=== PATIENT | female | born 1990 | race Caucasian/White ===

== ENCOUNTER → 2017-11-23 09:11 | Outpatient (CLI) | payer BC, SELFPAY ==
--- NOTE | 2017-11-23 09:25 | RAD_ITS ---
STUDY: X-RAY - LUMBOSACRAL SPINE REASON FOR EXAM: Female, 27 years old. Back pain TECHNIQUE: 6 view(s) of the lumbosacral spine were obtained including flexion and extension.. COMPARISON: None FINDINGS: There is an exaggerated lumbar lordosis. There is no substantial scoliosis. There is normal alignment of the vertebrae. No change in alignment on flexion and extension. Normal vertebral bodies and endplates. Normal disc space heights. Normal bilateral sacral ala, sacroiliac joints, and visualized sacrum. Status post cholecystectomy. RAD/L/S Spine Comp/w Bending Views IMPRESSION: Exaggerated lumbar lordosis with otherwise normal alignment. No changes in vertebral body alignment on flexion and extension. Negative for fracture, osteolytic or blastic bone lesion. Negative for substantial degenerative or arthritic changes. Electronically Signed: Lydia Hernandez MD at 21:08 EST , Service support ,
== END ==
PROVIDERS: Visit Provider Orthopaedic Surgery
DX: M54.5 Low back pain (principal)
CPT/HCPCS: 72114

== ENCOUNTER → 2017-12-02 09:27 | Outpatient (CLI) | payer BC, SELFPAY ==
[2017-12-02 10:33] LABS: Amphetamine Urine VISTA NEGATIVE (<1000 ng/mL); Barbiturate Urine VISTA NEGATIVE (< 200 ng/mL); Benzodiazepine Urine VISTA NEGATIVE (< 200 ng/mL); Cocaine Urine VISTA NEGATIVE (< 300 ng/mL); Ecstacy Urine VISTA NEGATIVE (< 500 ng/mL); Methadone Urine VISTA NEGATIVE (< 300 ng/mL); PCP Urine VISTA NEGATIVE (< 25 ng/mL); THC Urine VISTA NEGATIVE (< 50 ng/mL); Vista UDS pH Range 7
== END ==
PROVIDERS: Visit Provider Anesthesiology
DX: F11.20 Opioid dependence, uncomplicated (principal)
CPT/HCPCS: 80307

== ENCOUNTER 2018-05-26 11:54 | Emergency (ER) | payer SELFPAY ==
[2018-05-26 11:55] VITALS: BP 151/84; PULSE 90; RESP 16; TEMP 36.4; O2SAT 100; BMI 34.3
--- NOTE | 2018-05-26 12:14 | ED.VISSUMM ---
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 Cedeño orthopedic surgeon but her insurance is requiring her to wait until June she is on nonsteroidals currently she has no other complaints Physical Examination: [] On exam head neck chest abdomen unremarkable the right upper extremity has full range of motion to the hand and the wrist is a strong radial pulse cap refill sensation is normal she has full flexion-extension of all major joints thumb function is normal she complains of paresthesias to the ring and index finger but these fingers are well-perfused sensation appears to be intact and seems like much of this is at least exacerbated by her work duties Test Results: [] Emergency Department Course and Treatment: [] I explained the patient this time given his lack of trauma this is a long-standing problem this certainly could be related to a neurovascular muscular process I recommend she see Dr. Cedeño , she will try to go with that process again she has referral to Dr. Cedeño as she seen them before, she indicates she is currently on nonsteroidals I explained her that I could not prescribe anything other than nonsteroidals, and her pain must be managed by her primary care provider is not the emergency department, based on state rules, we will provide her with a Velcro wrist splint asked her to limit her work duties rest ice elevate and return for change in symptoms and she will do so Treatment Plan: [] Disposition: [] Home stable Impression: [] Paresthesias is involving the right hand This note was generated with [employer] dictation software. It may contain incorrect words, spelling, and punctuation that were not noted in review of the chart prior to signing ED Disposition - Plan for ED Patient: Chief Complaint: Upper Extremity Injury Referrals: NOT,DEFINED [Primary Care Provider] -
--- NOTE | 2018-05-26 12:17 | ED.DCSUM_ITS ---
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 Cedeño orthopedic surgeon but her insurance is requiring her to wait until June she is on nonsteroidals currently she has no other complaints Physical Examination: [] On exam head neck chest abdomen unremarkable the right upper extremity has full range of motion to the hand and the wrist is a strong radial pulse cap refill sensation is normal she has full flexion-extension of all major joints thumb function is normal she complains of paresthesias to the ring and index finger but these fingers are well-perfused sensation appears to be intact and seems like much of this is at least exacerbated by her work duties Test Results: [] Emergency Department Course and Treatment: [] I explained the patient this time given his lack of trauma this is a long-standing problem this certainly could be related to a neurovascular muscular process I recommend she see Dr. Cedeño , she will try to go with that process again she has referral to Dr. Cedeño as she seen them before, she indicates she is currently on nonsteroidals I explained her that I could not prescribe anything other than nonsteroidals, and her pain must be managed by her primary care provider is not the emergency department, based on state rules, we will provide her with a Velcro wrist splint asked her to limit her work duties rest ice elevate and return for change in symptoms and she will do so Treatment Plan: [] Disposition: [] Home stable Impression: [] Paresthesias is involving the right hand This note was generated with [employer] dictation software. It may contain incorrect words, spelling, and punctuation that were not noted in review of the chart prior to signing ED Disposition - Plan for ED Patient: Chief Complaint: Upper Extremity Injury Referrals: NOT,DEFINED [Primary Care Provider] -
--- NOTE | 2018-05-26 12:17 | ED.DEP ---
ED Disposition - Plan for ED Patient: Chief Complaint: Upper Extremity Injury Instructions: ED Carpal Tunnel Referrals: NOT,DEFINED [Primary Care Provider] - Additional Instructions: Please wear the wrist splint, ice elevation and follow-up with Dr. Cedeño as soon as you can, limit your gripping work during her work duties
== END 2018-05-26 12:36 | disposition home or self-care (01) ==
PROVIDERS: Emergency Provider Emergency Medicine
DX: R20.2 Paresthesia of skin (principal); G56.01 Carpal tunnel syndrome, right upper limb; Z79.84 Long term (current) use of oral hypoglycemic drugs; Z79.899 Other long term (current) drug therapy
CPT/HCPCS: 99283

== ENCOUNTER → 2018-07-10 09:26 | Outpatient (CLI) | payer OTHER, SELFPAY ==
--- NOTE | 2018-07-10 09:31 | RAD_ITS ---
STUDY: X-RAY - RIGHT HAND REASON FOR EXAM: Unable to straighten fingers for 6 months, no specific injury. TECHNIQUE: 3 view(s) of the hand. COMPARISON: None. FINDINGS: Normal radiocarpal articulation. Normal distal radioulnar joint. Normal visualized carpal bones. Normal carpal articulations Normal carpometacarpal articulation of the thumb. Normal second through fifth carpometacarpal joints. Normal metacarpi. Normal metacarpophalangeal joint of the thumb. Normal interphalangeal joint of the thumb. Normal proximal and distal phalanges of the thumb. Normal metacarpophalangeal joints of the second through fifth fingers. There is flexion deformity of the second and third digits at the proximal interphalangeal joints. Normal phalanges of the second through fifth fingers. The soft tissue structures are unremarkable. RAD/Hand Min 3 Views IMPRESSION: Flexion deformity of the second and third digits at the proximal interphalangeal joints. Otherwise, unremarkable x-ray examination of the right hand. Electronically Signed: Addy Rivera MD at 13:28 EDT Tel , Service support ,
== END ==
PROVIDERS: Referring Provider Orthopaedic Surgery; Visit Provider Orthopaedic Surgery
DX: M79.641 Pain in right hand (principal)
CPT/HCPCS: 73130

== ENCOUNTER 2018-08-04 11:01 | Emergency (ER) | payer OTHER, SELFPAY ==
[2018-08-04 11:01] VITALS: BP 156/94; PULSE 96; RESP 16; TEMP 36.4; O2SAT 98; BMI 34.8
--- NOTE | 2018-08-04 11:55 | ED.VISSUMM ---
- ER Visit Summary Date of Service: 08/04/18 Chief Complaint: [] Pain in the right hand index long finger for months seen by [facility] 2 days ago History of Present Illness: The patient is a 28 F [] she has a long history of intermittent cramps and pain involving the right index and long finger to where she indicates the fingers seem to constrict in flexion the etiology of this is unclear this is been going on for many many months she has been evaluated by her primary care physicians other physicians, she was recently seen by [facility] on this she has had studies done etc. the exact etiology of the above is unclear she indicates she was told that was when she is an MRI for further evaluation of the above and that is being scheduled. She indicates she is taking was told by her outpatient providers to use [id number] medications, she is not been prescribed any prescription medicines by any of her providers in fact she was not given anything by the [facility] provider she saw. She presents today saying that the up nonsteroidal medication she is using and Tylenol are not helping and she indicates she contacted [facility] and they told her that if she went to the emergency department she would receive pain management options. This is not different or new in any way, she has no known history of any medical conditions no trauma and again this is a chronic relapsing issue Physical Examination: [] Blood pressure is 150/80 she is in no distress her right hand index finger long finger at the PIP joints are held in slight flexion any type of movement causes pain there is normal cap refill, strong radial pulse, no signs of vascular venous insufficiency, and sensation in the thumb the rest of the fingers unremarkable the hand itself is unremarkable the wrist forearm elbow and the rest of the extremities normal her HEENT heart and lung exam are unremarkable and her neurologic exam is grossly unremarkable Test Results: [] Emergency Department Course and Treatment: [Extensive prior evaluation she has had a prior extensive evaluation and again has just seen [facility] 2 days ago none of her providers have provided her with prescription medications, she is indicating nonsteroidals are not helping I explained we could provide prescription strength nonsteroidals we could not provide narcotic medications and further I explained to her pain management cannot be assumed by the emergency department as per [facility] and multiple other regulators her pain management must be provided by one provider, given the prior extensive evaluation and the fact that she is just been seen by hand service there is been no trauma or nothing that is different or new I explained there is really nothing additionally can be done from the emergency department and she should follow-up with all of her outpatient providers and otherwise follow all their instructions. We will provide her Toradol 60 mg's IM and I will provide her a prescription for Naprosyn 500 twice daily, I discussed splinting devices with her she states she has been given those before and those do not help and she does not wish to have that Treatment Plan: [] Disposition: [] Home stable Impression: [] Acute on chronic recurrent intermittent right hand cramps etiology unclear This note was generated with [employer] dictation software. It may contain incorrect words, spelling, and punctuation that were not noted in review of the chart prior to signing ED Disposition - Plan for ED Patient: Chief Complaint: Upper Extremity Injury Referrals: Shira Humphrey, RN [Primary Care Provider] -
[2018-08-04] MEDS: Ketorolac 60 MG/2 ML Vial IM (11:56)
--- NOTE | 2018-08-04 11:59 | ED.DEP ---
ED Disposition - Plan for ED Patient: Chief Complaint: Upper Extremity Injury Instructions: ED Sprain Finger Prescriptions: Naproxen [Naprosyn] 500 mg PO BID PRN #20 tab Referrals: Shira Humphrey RN [Primary Care Provider] - Additional Instructions: Please follow all of the instructions given to you by your primary care and outpatient providers and hand providers
== END 2018-08-04 12:10 | disposition home or self-care (01) ==
PROVIDERS: Emergency Provider Emergency Medicine
DX: R25.2 Cramp and spasm (principal); M79.641 Pain in right hand
CPT/HCPCS: 96372; 99282

== ENCOUNTER 2018-09-06 10:41 | Outpatient (RCR) | payer SELFPAY ==
--- NOTE | 2018-10-16 11:04 | HP.OTEVAL_ITS ---
Patient's Visit Information ELIANA LOPEZ is a 28 year old F, referred to Occupational Therapy by LISA BURTON, with a diagnosis of Trigger finger releaase of R middle and index fingers. Date of Evaluation: 09/06/18 Occupational Therapist: Malissa Parmar, TRACIER/Yang, CHT - Subjective Subjective: pt. arrives with trigger finger release of 2nd and 3rd fingers, which occured on 08/20/18. pt. started having trigger finger symptoms about 8 months ago. pt. reports that the stitches were removed on the 08/30/18. pt. arrives with resting hand splint and reports that it may need altered slightly for increased comfort. - ADLs Kitchen: Open jars Miscellaneous: Write Comments: pt. reports that pushing objects and lifting heavy objects is challenging - Pain palm of R hand 6 Pain Intensity Range: 0, 1, 2, 3, 4, 5, 6, 7, 8 - Objective Objective/Observation: pt. has extension lag in the 2nd and 3rd digits - ROM ROM Comments: slight pulling from moving fingers during the ROM measurements. 2nd finger. MP: 0/41. PIP: -/. DIP: -5/60. 3rd. MP: 0/51. PIP: -18/80. 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 by completing strengthening exercises and stretches in order to complete BADL?s and IADL?s. Patient will improve lateral and tripod grasps by 5 lbs. by completing strengthening and stretching exercises in order to complete BADL?s and IADL?s. Goal:: Patient will increase ROM in MP joint of L thumb by 10 degrees by completing strengthening and stretching exercises in order to complete BADL?s and IADL?s. Goal:: Patient will report overall decrease in pain of <3 in order to complete BADL?s and IADL?s. Goal:: patient will report completion of and demo understanding of HEP for increased I with BADL's and IADL's. - Rehabilitation General Assessment: pt. presents today after having trigger finger release of R middle and index fingers on 08/20/18. pt. presents today with decreased strength, ROM, increased pain, and decreased ability to complete BADL's and IADL's. D/t high co-pay, pt. would like to keep visits to a minimum. pt. will likely be seen for 1-2 additional follow-up visits to make sure pt. is progressing. Today, OT provided US and educated pt. on HEP and scar tissue management. Rehabilitation Potential: Excellent - Anticipated Interventions Anticipated Interventions: A/AAROM/PROM, Strengthening, Scar Care, Triggerpoint Release, Modalities, Orthoses, Joint Protection/Energy Conservation, ADL Training, Home Program - Visit Plan Frequency: 1x/Week Duration: 1 Week TEXT: Thank you for the opportunity to evaluate your patient. For Medicare and Medicare HMO plans, please review the plan of care and approve it. It will need to be FAXED BACK to us at [phone] for Medicare purposes. Please let me know if there are questions or concerns regarding this plan of care. Physician Signature: Date:
--- NOTE | 2019-01-09 14:37 | HP.OT.NRP ---
HP - Discharge Summary - Patient Information ELIANA LOPEZ was seen in my office for initial evaluation on 09/06/18. The following Plan of Care was established for this patient: Initial Frequency: 1x/Week Initial Duration: 1 Week - Anticipated Interventions Anticipated Interventions: A/AAROM/PROM, Strengthening, Scar Care, Triggerpoint Release, Modalities, Orthoses, Joint Protection/Energy Conservation, ADL Training, Home Program This patient was last seen in our office 09/06/18. Pertinent comments regarding their Occupational therapy will appear below: pt was seen for initial OT eval only. pt cancelled her apt on 09/10/19 and has not rescheduled. pt d/c due to time-lapse in care. At this point I will be discontinuing this patient from occupational therapy. I would be happy to see this patient again in the future if found appropriate by the physician. Thank you! Malissa Parmar, OTR/L, CHT
== END 2018-09-06 19:00 | disposition home or self-care (01) ==
LOC: OT 10:41
DX: M65.331 Trigger finger, right middle finger (principal); M65.321 Trigger finger, right index finger
CPT/HCPCS: 97166

== ENCOUNTER → 2019-11-08 19:53 | Outpatient (CLI) | payer BC, OTHER, SELFPAY ==
[2019-11-08 20:45] LABS: Amphetamine Urine VISTA NEGATIVE (<1000 ng/mL); Barbiturate Urine VISTA NEGATIVE (< 200 ng/mL); Benzodiazepine Urine VISTA NEGATIVE (< 200 ng/mL); Cocaine Urine VISTA NEGATIVE (< 300 ng/mL); Ecstacy Urine VISTA NEGATIVE (< 500 ng/mL); Methadone Urine VISTA NEGATIVE (< 300 ng/mL); PCP Urine VISTA NEGATIVE (< 25 ng/mL); THC Urine VISTA NEGATIVE (< 50 ng/mL); Vista UDS pH Range 6
== END ==
PROVIDERS: Visit Provider Anesthesiology
DX: F11.20 Opioid dependence, uncomplicated (principal)
CPT/HCPCS: 80307

== ENCOUNTER 2020-12-31 08:48 | Outpatient (RCR) | payer BC, SELFPAY ==
[2020-12-31 09:12] VITALS: BP 126/87; PULSE 122; RESP 20; TEMP 36.8; BMI 34.8
--- NOTE | 2020-12-31 14:39 | HP.PCM_ITS ---
(1) Surgical wound dehiscence Status: Acute Code(s): T81.31XA - Disruption of external operation (surgical) wound, not elsewhere classified, initial encounter (2) Peripheral vascular disease Status: Chronic Code(s): I73.9 - Peripheral vascular disease, unspecified (3) Type 1 diabetes mellitus Status: Chronic Code(s): E10.9 - Type 1 diabetes mellitus without complications (4) Tobacco abuse Status: Chronic Code(s): Z72.0 - Tobacco use (5) Tobacco abuse counseling Status: Acute Code(s): Z71.6 - Tobacco abuse counseling History of Present Illness Date of Service: 12/31/20 Chief Complaint: Non healing surgical wound History of Wound: Ms. Echols is a 30 yo who was referred by her surgeon due to non healing post surgical wound/wound breakdown. She has had a very eventful past couple of weeks. Initially seen by her patch sander for left ingrown toenail however referred to vascular surgeon due to poor healing and concerns for peripheral vascular disease. Was noted to have severe peripheral vascular disease and a bypass was attempted which had several complications/postop swelling for which she was readmitted. Following surgery, incision sites have not healed predominantly the one around her knee and left ankle. Left toe wound also did not heal for which she was seen by her patch sander again a week ago and had a partial amputation. Stitches have remained for weeks due to concern per patient for breakdown. She states that her diabetes has been better controlled with her A1c down from 11.5-7.5. Smokes and has smoked about 3 packs a day s joseline age 14 but states that she now cut back to half a pack to 1 pack a day. She denies chills, fever or otherwise feeling of unwell. Past Medical History Past Medical History: Chronic Problems (This Medical Record has been edited. Action required.) Peripheral vascular disease (Chronic) Type 1 diabetes mellitus (Chronic) Tobacco abuse (Chronic) Allergies/Adverse Reactions: Allergies Sulfa (Sulfonamide Antibiotics) Allergy (Verified 12/31/20 09:52) unknown amoxicillin Allergy (Uncoded 05/02/19 15:22) unknown ceclore Allergy (Uncoded 05/02/19 15:22) unknown Home Medications: Ambulatory Orders Medication Instructions Recorded lisinopril 5 mg tablet 5 mg PO QDAY 11/23/17 metformin 500 mg tablet 850 mg PO BID 11/23/17 simvastatin 5 mg tablet 5 mg PO QPM 11/23/17 Acetaminophen [Tylenol Extra 500 mg PO TID 12/31/20 Strength] Aspirin/Calcium Carbonate [Raphael 81 mg PO 12/31/20 Women's Aspirin Tablet] Dulaglutide [Trulicity] 0.75 mg SQ 12/31/20 Duloxetine HCl 30 mg PO 12/31/20 Ertapenem Sodium [Ertapenem] 1 gm IJ 12/31/20 Gabapentin 300 mg PO TID 12/31/20 Oxycodone HCl/Acetaminophen 12/31/20 [Percocet 5-325] Rivaroxaban [Xarelto] 20 mg PO DAILY 12/31/20 Smoking Status: Current every day smoker Review of Systems Constitutional: Denies: Anorexia, Chills, Fever Eyes: Denies: Blurred vision, Pain, Redness HEENT: Denies: Difficulty Hearing, Difficulty Swallowing, Head Aches, Sore Throat Cardiovascular: Denies: Chest Pain, Claudication, Chest Pressure, Chest Tightness Respiratory: Denies: Cough, Hemoptysis, Pleuritic Pain, Shortness of Breath Gastrointestinal: Denies: Abdominal Pain, Hematemesis, Vomiting Genitourinary: Denies: Hematuria Skin: Denies: Jaundice - Physical Exam Vital Signs Temp Pulse Resp BP 98.2 F 122 H 20 H 126/87 H 12/31/20 09:12 12/31/20 09:12 12/31/20 09:12 12/31/20 09:12 General: Alert, Oriented x3, Cooperative, No apparent distress HEENT: Atraumatic, Normocephalic Oral: Moist Mucosa Neck: Supple Lungs: Normal air movement Extremities: No cyanosis, Edema Skin: Ulcer/ Wound Wound Measurements and Assessment WC - Nurse 1 - General Ulcer Measurement Start: 12/31/20 09:00 Freq: Status: Active Protocol: Activity Type Activity Date Activity User E-Sign Co-Sign Detail Recorded Client Recorded Date Recorded By Document 12/31/20 09:12 MT [id number] 12/31/20 09:45 DL 12/31/20 09:12 Wound Center Nurse 1 [Ulcer Assessment] #3 L Grt Toe -Current Size (cm) - Length 0.6 -Current Size (cm) - Width 2.6 -Current Size (cm) - Depth 0.1 -Total Square Cm 1.56 -Photo Taken Yes -Exudate Amt None Present -Exudate Type Serosanguineous -Wound Margin Distinct, Outline Attached -Granulation Amt None Present (0 %) -Necrosis Amt Large (67-100%) -Necrotic Tissue Type Adherent Slough -Structure Exposed N/A -Texture (Genesis-wound Skin Appearance) Localized Edema -Moisture (Genesis-wound Skin Appearance No Abnormality ) -Color (Genesis-wound Skin Appearance) Erythema,Rubor -Temperature (Genesis-wound Skin No Abnormality Appearance) (Pt Warm) -Tenderness on Palpation (Genesis-wound No Skin Appearance) -Ulcer Cleansing Wound Cleanser -Foul Odor after Cleansing No -Anesthetic Used 4% Lidocaine Solution #2 LLE MED -Current Size (cm) - Length 4.6 -Current Size (cm) - Width 0.6 -Current Size (cm) - Depth 0.2 -Total Square Cm 2.76 -Photo Taken Yes -Exudate Amt Small -Exudate Type Serosanguineous -Wound Margin Distinct, Outline Attached -Granulation Amt None Present (0 %) -Necrosis Amt Large (67-100%) -Necrotic Tissue Type Adherent Slough -Structure Exposed N/A -Texture (Genesis-wound Skin Appearance) Localized Edema ,Scarring -Moisture (Genesis-wound Skin Appearance No Abnormality ) -Color (Genesis-wound Skin Appearance) Erythema,Rubor -Temperature (Genesis-wound Skin No Abnormality Appearance) (Pt Warm) -Tenderness on Palpation (Genesis-wound No Skin Appearance) -Ulcer Cleansing Wound Cleanser -Foul Odor after Cleansing No -Anesthetic Used 4% Lidocaine Solution #1 LLE Med Knee -Current Size (cm) - Length 8.5 -Current Size (cm) - Width 0.9 -Current Size (cm) - Depth 0.3 -Total Square Cm 7.65 -Photo Taken Yes -Classification - Thickness Full Thickness without Exposed Support Structure -Exudate Amt Medium -Exudate Type Serosanguineous -Wound Margin Distinct, Outline Attached -Granulation Amt Small (1-33%) -Granulation Quality [place] -Necrosis Amt Large (67-100%) -Necrotic Tissue Type Adherent Slough -Structure Exposed N/A -Texture (Genesis-wound Skin Appearance) Scarring -Moisture (Genesis-wound Skin Appearance No Abnormality ) -Color (Genesis-wound Skin Appearance) Erythema,Rubor -Temperature (Genesis-wound Skin No Abnormality Appearance) (Pt Warm) -Tenderness on Palpation (Genesis-wound Yes Skin Appearance) -Ulcer Cleansing Wound Cleanser -Foul Odor after Cleansing No -Anesthetic Used 4% Lidocaine Solution [Edema Assessment] -Left Calf (cm) 33 -Left Ankle (cm) 20.8 WC - Nurse 2 - General Ulcer CM Notes Start: 12/31/20 09:00 Freq: Status: Active Protocol: Activity Type Activity Date Activity User E-Sign Co-Sign Detail Recorded Client Recorded Date Recorded By Document 12/31/20 10:13 MW [id number] 12/31/20 10:22 MW 12/31/20 10:13 Wound Center Nurse 2 [Procedure/Treatment] #3 L Grt Toe -Time 10:13 -Correct Patient Yes -Correct Side, Site, Position Yes -Correct Procedure Yes -Procedure Performed No -Wound/Ulcer Outcome Not Healed #2 LLE MED -Time 10:13 -Correct Patient Yes -Correct Side, Site, Position Yes -Correct Procedure Yes -Procedure Performed No -Tunneling No -Undermining/Tunneling No -Circular Undermining No -Wound/Ulcer Outcome Not Healed #1 LLE Med Knee -Time 10:13 -Correct Patient Yes -Correct Side, Site, Position Yes -Correct Procedure Yes -Procedure Performed No -Tunneling No -Undermining/Tunneling No -Circular Undermining No -Wound/Ulcer Outcome Not Healed [See Physician Procedure note for Specifics] Pain Scale: 0-10 Numeric [Pain] -Is Patient Pain Free? Yes WC - Nurse 3 - General Ulcer D/C NN Start: 12/31/20 09:00 Freq: Status: Active Protocol: Activity Type Activity Date Activity User E-Sign Co-Sign Detail Recorded Client Recorded Date Recorded By Document 12/31/20 10:36 KR [id number] 12/31/20 10:37 KR 12/31/20 10:36 Wound Care Nurse 3 [Wound Dressing] #3 L Grt Toe -Primary Dressing Applied C Hydrogel ($), NonAdherent Contact Layer -Primary Dressing Covered/Secured Dry Gauze, with Secured with Tape #2 LLE MED -Ulcer Cleansing Rinsed/ Irrigated with Saline -Primary Dressing Applied C Hydrogel ($) -Primary Dressing Covered/Secured Dry Gauze, with Secured with Tape,Other -Other Covering JC Wrap #1 LLE Med Knee -Ulcer Cleansing Rinsed/ Irrigated with Saline -Primary Dressing Applied C Hydrogel ($) -Primary Dressing Covered/Secured Dry Gauze, with Secured with Tape Pain Scale: 0-10 Numeric [Pain] -Is Patient Pain Free? Yes - Visit Discharge [Visit Discharge Information] -Discharge Condition Stable -Ambulatory Status Walker -Transportation Private Auto -Accompanied by Musculoskeletal: No Muscle Wasting Neurological: Cranial nerves II-XII grossly intact Psych/Mental Status: Normal Affect Debridement Note Post-Debridement Measurements/Treatment - Nurse 2 - General Ulcer CM Notes Start: 12/31/20 09:00 Freq: Status: Active Protocol: Activity Type Activity Date Activity User E-Sign Co-Sign Detail Recorded Client Recorded Date Recorded By Document 12/31/20 10:13 MW [id number] 12/31/20 10:22 MW 12/31/20 10:13 Wound Center Nurse 2 #3 L Grt Toe -Time 10:13 -Correct Patient Yes -Correct Side, Site, Position Yes -Correct Procedure Yes -Procedure Performed No -Wound/Ulcer Outcome Not Healed #2 LLE MED -Time 10:13 -Correct Patient Yes -Correct Side, Site, Position Yes -Correct Procedure Yes -Procedure Performed No -Tunneling No -Undermining/Tunneling No -Circular Undermining No -Wound/Ulcer Outcome Not Healed #1 LLE Med Knee -Time 10:13 -Correct Patient Yes -Correct Side, Site, Position Yes -Correct Procedure Yes -Procedure Performed No -Tunneling No -Undermining/Tunneling No -Circular Undermining No -Wound/Ulcer Outcome Not Healed Pain Scale: 0-10 Numeric Is Patient Pain Free? Yes - Nurse 3 - General Ulcer D/C NN Start: 12/31/20 09:00 Freq: Status: Active Protocol: Activity Type Activity Date Activity User E-Sign Co-Sign Detail Recorded Client Recorded Date Recorded By Document 12/31/20 10:36 KR [id number] 12/31/20 10:37 KR 12/31/20 10:36 Wound Care Nurse 3 #3 L Grt Toe -Primary Dressing Applied C Hydrogel ($), NonAdherent Contact Layer -Primary Dressing Covered/Secured with Dry Gauze, Secured with Tape #2 LLE MED -Ulcer Cleansing Rinsed/ Irrigated with Saline -Primary Dressing Applied C Hydrogel ($) -Primary Dressing Covered/Secured with Dry Gauze, Secured with Tape,Other -Other Covering JC Wrap #1 LLE Med Knee -Ulcer Cleansing Rinsed/ Irrigated with Saline -Primary Dressing Applied C Hydrogel ($) -Primary Dressing Covered/Secured with Dry Gauze, Secured with Tape Pain Scale: 0-10 Numeric Is Patient Pain Free? Yes WC - Visit Discharge Discharge Condition Stable Ambulatory Status Walker Transportation Private Auto Accompanied by No debridement was completed today Assessment/Plan Active Problems (This Medical Record has been edited. Action required.) Surgical wound dehiscence (Acute) Peripheral vascular disease (Chronic) Type 1 diabetes mellitus (Chronic) Tobacco abuse (Chronic) Tobacco abuse counseling (Acute) Assessment: Nonhealing postsurgical wound. Surgical wound breakdown. Poorly controlled diabetes mellitus. History of significant tobacco use. Peripheral vascular disease status post bypass. Plan: No debridement completed today. Complicated past medical history and surgical history. Still has sutures in place and per patient, her surgeons are concerned about taking off the sutures. Nonabsorbable sutures used. Left medial ankle wound with concerns for necrotic tissue. Better granulation noted around the left knee wound with significant slough burden. Area of toe amputation appears clean and dry. Apply Santyl to both areas daily (medial ankle and medial knee ). She was advised to clean the area properly before applying. Optimal diabetes control and smoking cessation very strongly recommended. Edema management with Jc wrap. Elevate lower extremities when sitting in bed. Vitamin C and zinc also recommended. Continue follow-up with surgeons for possible suture removal. She states that she has an appointment on the . Questions were answered and she was advised to call with any further questions or concerns. Follow-up in a week. This note was generated with [email or web address] dictation software. It may contain incorrect words, spelling, and punctuation that were not noted in checking the note before signing. Office Visits / Consults: [id number] OV L4 New
== END 2021-01-15 23:59 ==
LOC: WC 08:48
PROVIDERS: PCP Family Medicine; Visit Provider Internal Medicine
DX: T81.31XA Disruption of external operation (surgical) wound, not elsewhere classified, initial encounter (principal); Y83.9 Surgical procedure, unspecified as the cause of abnormal reaction of the patient, or of later complication, without mention of misadventure at the time of the procedure; E10.51 Type 1 diabetes mellitus with diabetic peripheral angiopathy without gangrene; L60.0 Ingrowing nail; F17.200 Nicotine dependence, unspecified, uncomplicated; Z79.899 Other long term (current) drug therapy; Z79.82 Long term (current) use of aspirin; Z79.01 Long term (current) use of anticoagulants
CPT/HCPCS: 99213; G0463

== ENCOUNTER 2021-04-14 07:48 | Outpatient (RCR) | payer BC, SELFPAY ==
[2021-01-16 00:53] VITALS: BP 126/87; PULSE 122; RESP 20; TEMP 36.8
[2021-04-14 08:30] VITALS: BP 124/98; PULSE 101; TEMP 36.1; BMI 34.8
--- NOTE | 2021-04-14 11:20 | PCM.WC.HP ---
History of Present Illness Date of Service: 04/14/21 Chief Complaint: Non healing surgical wound History of Wound: Ms. Echols is a 30 yo who was referred by her surgeon due to non healing post surgical wound/wound breakdown. She has had a very eventful past couple of weeks. Initially seen by her global professional for left ingrown toenail however referred to vascular surgeon due to poor healing and concerns for peripheral vascular disease. Was noted to have severe peripheral vascular disease and a bypass was attempted which had several complications/postop swelling for which she was readmitted. Following surgery, incision sites have not healed predominantly the one around her knee and left ankle. Left toe wound also did not heal for which she was seen by her global professional again a week ago and had a partial amputation. Stitches have remained for weeks due to concern per patient for breakdown. She states that her diabetes has been better controlled with her A1c down from 11.5-7.5. Smokes and has smoked about 3 packs a day since age 14 but states that she now cut back to half a pack to 1 pack a day. She denies chills, fever or otherwise feeling of unwell. [facility] Medical History (Updated 04/14/21 @ 11:27 by Vanessa Ching NP, [employer]) Acute deep vein thrombosis Asthma Diabetes Home Medications lisinopril 5 mg tablet 5 mg PO QDAY 11/23/17 [History Last Taken Unknown] metformin 500 mg tablet 1,000 mg PO BID 11/23/17 [History Last Taken Unknown] Ertapenem Sodium [Ertapenem] 1 gm IJ DAILY 12/31/20 [History Last Taken Unknown] acetaminophen 500 mg PO TID 12/31/20 [History Last Taken Unknown] duloxetine 30 mg PO DAILY 12/31/20 [History Last Taken Unknown] gabapentin 300 mg PO TID 12/31/20 [History Last Taken Unknown] rivaroxaban 20 mg PO DAILY 12/31/20 [History Last Taken Unknown] aspirin [Aspir-81] 81 mg PO DAILY 04/14/21 [History Last Taken Unknown] atorvastatin 40 mg PO QPM 04/14/21 [History Last Taken Unknown] Allergy/AdvReac Type Severity Reaction Status Date / Time Sulfa (Sulfonamide Allergy unknown Verified 12/31/20 09:52 Antibiotics) amoxicillin Allergy unknown Uncoded 05/02/19 15:22 ceclore Allergy unknown Uncoded 05/02/19 15:22 Surgical History (System 05/02/19 @ 15:22 by Anuradha Crouch) Carpal tunnel syndrome gallbladder removed Social History (System 05/02/19 @ 15:22 by Anuradha Crouch) Smoking Status: Current every day smoker ROS Constitutional Constitutional: Reports systems reviewed and no addt'l complaints, except as documented Eyes Eyes: Reports systems reviewed and no addt'l complaints, except as documented ENT HEENT: Reports systems reviewed and no addt'l complaints, except as documented Cardiovascular Cardiovascular: Reports systems reviewed and no addt'l complaints, except as documented Respiratory/Chest Respiratory/Chest: Reports systems reviewed and no addt'l complaints, except as documented Gastrointestinal Gastrointestinal: Reports systems reviewed and no addt'l complaints, except as documented Genitourinary Genitourinary: Reports systems reviewed and no addt'l complaints, except as documented Musculoskeletal Musculoskeletal: Reports systems reviewed and no addt'l complaints, except as documented Integumentary Integumentary: Reports systems reviewed and no addt'l complaints, except as documented, skin ulcer and wounds Neurologic Neurologic: Reports systems reviewed and no addt'l complaints, except as documented Psychiatric Psychiatric: Reports systems reviewed and no addt'l complaints, except as documented Endocrine Endocrinology: Reports systems reviewed and no addt'l complaints, except as documented Hematologic/Lymphatic Hematologic/Lymphatic: Reports systems reviewed and no addt'l complaints, except as documented Allergic/Immunologic Allergic/Immunologic: Reports systems reviewed and no addt'l complaints, except as documented Vital Signs Vital Signs Vital Signs: 04/14/21 08:30 Temperature 97 F L Temperature Source Temporal Pulse Rate 101 H Blood Pressure 124/98 H Blood Pressure Mean 106 Blood Pressure Source Monitor Blood Pressure Position Sitting Blood Pressure Location Right Arm Weight Body Mass Index (BMI) 34.8 Physical Exam Const oriented x3 General Appearance: cooperative Exam Limitations: no limitations HEENT normocephalic Head and Scalp: normal to inspection Face and Sinus: normal facial exam Nose: external nose normal General Ear: hearing grossly impaired External Ear: external ears normal Mouth: oral and palatal mucosa normal Eyes PERRL General Eye: normal appearance of both eyes Neck full ROM General: normal visual inspection Resp normal respiratory effort Effort and Inspection: able to speak in complete sentences Auscultation: clear to auscultation bilaterally Cardio regular rate and regular rhythm Palpation: normal PMI Rate: regular rate Rhythm: regular rhythm GI Auscultation: normoactive bowel sounds Palpation: soft and no hepatosplenomegaly external exam normal Back/Spine Cervical Spine: cervical ROM normal Thoracic Spine / Upper Back: normal to inspection Lumbar Spine / Lower Back: normal to inspection Extremity normal to inspection General Extremity: normal exam except as noted Skin Wounds: wounds noted Wound Narrative: Left great toe open wound Neuro oriented x3 Psych Appearance: grossly normal Speech: normal speech Thought Content: normal thought content Judgement: judgement good Debridement Note Debridement Note Post-Debridement Measurements and Additional Note: Post-Debridement Measurements/Treatment WC - Nurse 1 - General Ulcer Assessment Start: 04/14/21 08:24 Freq: Status: Active Protocol: ELHAM Activity Type Activity Date Activity User E-Sign Co-Sign Detail Recorded Client Recorded Date Recorded By Document 04/14/21 08:30 AK [id number] 04/14/21 08:51 AK Edit Result 04/14/21 08:30 AK (1) [id number] 04/14/21 09:03 AK (1) Type of service => Initial Visit Arrival Mode => Ambulatory Accompanied by => Patient Identification Verified (Name & => Yes ) Temperature (97.8 F-99.1 F) => 97 F L Temperature Source => Temporal Pulse Rate (60-100) => 101 H Pulse Location => Monitor Blood Pressure (90/60-120/80) => 124/98 H Blood Pressure Mean => 106 Source => Monitor Position => Sitting Blood Pressure Location => Right Arm 04/14/21 08:30 - Today's Visit Information Type of service Initial Visit Arrival Mode Ambulatory Accompanied by Patient Identification Verified (Name & Yes ) Height and Weight Body Mass Index (BMI) 34.8 BMI Classification Obese Vital Signs Temperature (97.8 F-99.1 F) 97 F L Temperature Source Temporal Pulse Rate (60-100) 101 H Pulse Location Monitor Blood Pressure (90/60-120/80) 124/98 H Blood Pressure Mean 106 Source Monitor Position Sitting Blood Pressure Location Right Arm - Nurse 1 - General Ulcer Measurement Start: 04/14/21 08:24 Freq: Status: Active Protocol: Activity Type Activity Date Activity User E-Sign Co-Sign Detail Recorded Client Recorded Date Recorded By Document 04/14/21 08:30 AK [id number] 04/14/21 08:51 AK 04/14/21 08:30 Wound Center Nurse 1 #4 L great toe post amp -Current Size (cm) - Length 2.1 -Current Size (cm) - Width 1.9 -Total Square Cm 3.99 -Date of Last Picture (Recall this 04/14/21 field) -Photo Taken Yes -Exudate Amt Medium -Exudate Type Purulent -Wound Margin Thickened -Granulation Amt None Present (0 %) -Necrosis Amt Large (67-100%) -Necrotic Tissue Type Eschar -Texture (Genesis-wound Skin Appearance) Assessed,Callus -Moisture (Genesis-wound Skin Appearance) Weeping -Temperature (Genesis-wound Skin No Abnormality Appearance) (Pt Warm) -Tenderness on Palpation (Genesis-wound Yes Skin Appearance) -Foul Odor after Cleansing No -Anesthetic Used 4% Lidocaine Solution WC - Nurse 2 - General Ulcer CM Notes Start: 04/14/21 08:24 Freq: Status: Active Protocol: Activity Type Activity Date Activity User E-Sign Co-Sign Detail Recorded Client Recorded Date Recorded By Document 04/14/21 09:15 MW [id number] 04/14/21 09:27 MW 04/14/21 09:15 Wound Center Nurse 2 -Time 09:17 -Correct Patient Yes -Correct Side, Site, Position Yes -Correct Procedure Yes -Procedure Performed Yes -Type of Procedure Debridement -Clinical Debridement Subcutaneous -Tissue Removed Subcutaneous -Post Debridement (cm) - Length 1.8 -Post Debridement (cm) - Width 2.0 -Post Debridement (cm) - Depth 0.3 -Total Square (Post) (cm) 3.60 -Area of Debridement (cm) - Length 1.8 -Area of Debridement (cm) - Width 2.0 -Total Square (Area) (cm) 3.60 -Tunneling No -Undermining/Tunneling No -Circular Undermining No -Wound/Ulcer Outcome Not Healed -Ulcer Cleansing Rinsed/ Irrigated with Saline -Foul Odor after Cleansing No -Bioengineered Tissue No -Injectable Lidocaine (%) 1 -Lidocaine (ml) 5 -Bleeding Controlled with Pressure -Offloading No -Treatment Response Procedure Tolerated Well -Debridement - Subq, 1st 20sq cm Yes Pain Scale: 0-10 Numeric Is Patient Pain Free? Yes WC - Nurse 3 - General Ulcer D/C NN Start: 04/14/21 08:24 Freq: Status: Active Protocol: Activity Type Activity Date Activity User E-Sign Co-Sign Detail Recorded Client Recorded Date Recorded By Document 04/14/21 09:43 DC [id number] 04/14/21 09:51 DC 04/14/21 09:43 Wound Care Nurse 3 #4 L great toe post amp -Primary Dressing Covered/Secured with Dry Gauze & Roll Gauze, Secured with Tape -Aquacel Extra 1 Right -Compression Wrap Jc Wrap WC - Visit Discharge Discharge Condition Stable Ambulatory Status Ambulatory Transportation Private Auto Medication Reconcilliation completed & No provided to patient/care provider Clinical Summary of Care Provided Yes Notes: daily dressing change, verbalized understanding. labs draw today Wound debrided: Left great toe amputation open wound Type of Debridement: Excisional debridement Anesthesia Used: - (Lidocaine 2% numb the area for debridement with sharps) Depth: in the subcutaneous layer Percentage of wound debrided: 100 Instrument Used: #15 blade and Forceps Severity: Necrosis of Bone Bleeding Controlled with: Compression and gauze Patient tolerated procedure: Patient tolerated procedure well Lab / Micro Data Result Diagrams: 04/14/21 10:06 04/14/21 10:06 Assessment/Plan Assessment/Plan (1) Surgical wound dehiscence: CODE(S): T81.31XA - Disruption of external operation (surgical) wound, not elsewhere classified, initial encounter QUALIFIERS: Encounter type: initial encounter Qualified Code(s): T81.31XA - Disruption of external operation (surgical) wound, not elsewhere classified, initial encounter PLAN: Wash left leg with antibacterial soap scrub skin around wound use amLactin cream to pads of foot for callusing. Apply Aquacel extra to wound base moistened cover with Adaptic gauze and wrap Jc wrap from ankle toes to ankle and then ankles to knee with 6 inch wrap cultures obtained will call with results Patient would be a candidate for HBO we will obtain labs CBC CMP hemoglobin A1c prealbumin We will call with results follow-up in 1 week (2) Peripheral vascular disease: CODE(S): I73.9 - Peripheral vascular disease, unspecified (3) Tobacco abuse: CODE(S): Z72.0 - Tobacco use
[2021-04-14 11:38] LABS: Absolute Lymphocyte Count 3.52 X10^3/uL (0.83-4.51); Absolute Neutrophil Count 9.4 X10^3/uL (2.0-7.7); Basophil# 0.05 X10^3/uL; Basophil% 0.4 % (0-1); Eosinophil# 0.29 X10^3/uL; Hematocrit 41.4 % (37-47); Hemoglobin 13.3 g/dL (12.0-15.0); Lymphocyte # 3.52 X10^3/ul (0.83-4.51); Lymphocyte % 24.7 % (19-41); Mean Corp Hgb Conc 32.1 g/dL (32-36); Mean Corpuscular Hgb 24.9 pg (27.0-32.0); Mean Corpuscular Volume 77.4 fL (81-99); Mean Platelet Vol. 11.1 fl (6.2-12.0); Monocyte# 1.01 X10^3/uL; Monocyte% 7.1 % (0-10); NRBC Flagged by Analyzer 0 % (0-5); Neutrophil # 9.35 X10^3/uL (2.7-7.7); Neutrophil % 65.4 % (47-70); Platelet Count 357 K/mm3 (150-450); RBC Distribution Width CV 16.4 % (11.6-14.6); RBC Distribution Width SD 46.4 fl (35.1-43.9); Red Blood Count 5.35 M/mm3 (4.2-5.4); White Blood Count 14.3 K/mm3 (4.4-11.0)
[2021-04-14 12:01] LABS: ALB/GLOB Ratio 0.8 RATIO (0.9-2.4); AST(SGOT) 10 U/L (15-37); Alanine Aminotransfer ALT/SGPT 29 U/L (13-56); Albumin, Serum 3.4 g/dL (3.2-5.0); Alkaline Phosphatase 123 U/L (45-117); Anion Gap 10 (5-15); BUN 7 mg/dL (7-18); BUN/Creat Ratio 15.2 RATIO (10-20); Calcium,Total 8.6 mg/dL (8.5-10.1); Chloride 103 mmol/L (98-107); Creatinine, Serum 0.46 mg/dL (0.55-1.02); EST Glomerular Filtration Rate 169 mL/min (>60); Est Glom Filt Rate - Afr Amer 204 mL/min (>60); Glucose 220 mg/dL (74-106); Hemoglobin A1c 8.8 % (3.8-5.6); Protein, Total 7.4 g/dL (6.4-8.2); Sodium Level 134 mmol/L (136-145)
== END 2021-04-17 23:59 ==
LOC: WC 07:48
PROVIDERS: PCP Family Medicine; Referring Provider Nurse Practitioner Family; Visit Provider Nurse Practitioner
DX: T87.81 Dehiscence of amputation stump (principal); E11.51 Type 2 diabetes mellitus with diabetic peripheral angiopathy without gangrene; F17.200 Nicotine dependence, unspecified, uncomplicated; Z89.412 Acquired absence of left great toe; Z79.84 Long term (current) use of oral hypoglycemic drugs
CPT/HCPCS: 11042; 36415; 80053; 83036; 84134; 85025; 87070; 87075; 87077; 87186; 87205; 99203; G0463

== ENCOUNTER 2021-05-10 11:18 | Outpatient (RCR) | payer BC, SELFPAY ==
[2021-04-18 00:12] VITALS: BP 124/98; PULSE 101; RESP 20; TEMP 36.1
== END 2021-05-18 23:59 ==
LOC: WC 11:18
PROVIDERS: PCP Family Medicine; Referring Provider Nurse Practitioner Family; Visit Provider Nurse Practitioner
DX: Z09 Encounter for follow-up examination after completed treatment for conditions other than malignant neoplasm (principal)

== ENCOUNTER → 2021-08-26 10:20 | Outpatient (CLI) | payer BC, SELFPAY ==
[2021-08-26 12:40] LABS: Anion Gap 8 (5-15); BUN 8 mg/dL (7-18); BUN/Creat Ratio 14.3 RATIO (10-20); Chloride 102 mmol/L (98-107); Cholesterol 245 mg/dL (200); Creatinine, Serum 0.56 mg/dL (0.55-1.02); EST Glomerular Filtration Rate 135 mL/min (>60); Est Glom Filt Rate - Afr Amer 164 mL/min (>60); Glucose 433 mg/dL (74-106); High Density Lipoprotein 33 mg/dL; Potassium 4.1 mmol/L (3.5-5.1); Sodium Level 132 mmol/L (136-145); Triglycerides 304 mg/dL; Very Low Density Lipoprotein 61 mg/dL (5-40)
[2021-08-26 12:53] LABS: Microalbumin:Creatinine Ratio 169.2 mg/g CRE (<30 mg/g CRE)
== END ==
PROVIDERS: PCP Family Medicine; Referring Provider Family Medicine; Visit Provider Family Medicine
DX: E11.9 Type 2 diabetes mellitus without complications (principal)
CPT/HCPCS: 36415; 80048; 80061; 82043; 82570

== ENCOUNTER 2021-12-16 10:21 | Outpatient (CLI) | payer BC, SELFPAY ==
[2021-12-16 12:19] LABS: Erythrocyte Sedimentation Rate 12 mm/hr (0-30)
[2021-12-16 12:52] LABS: Anion Gap 6 (5-15); BUN 9 mg/dL (7-18); BUN/Creat Ratio 13.9 RATIO (10-20); CRP, High Sensitivity Cardiac 3.01 mg/L; Calcium,Total 8.2 mg/dL (8.5-10.1); Chloride 104 mmol/L (98-107); Cholesterol 197 mg/dL (200); Creatinine, Serum 0.65 mg/dL (0.55-1.02); EST Glomerular Filtration Rate 114 mL/min (>60); Est Glom Filt Rate - Afr Amer 138 mL/min (>60); Glucose 314 mg/dL (74-106); High Density Lipoprotein 35 mg/dL; Rheumatoid Factor < 10.0 IU/mL (<15); Sodium Level 135 mmol/L (136-145); Triglycerides 279 mg/dL; Very Low Density Lipoprotein 56 mg/dL (5-40)
[2021-12-16 12:54] LABS: Creatinine, Urine (random) < 13.00 mg/dL (NO RANGE EST.); Microalbumin,Random Urine 6.9 mg/L (NO RANGE EST.)
[2021-12-17 16:54] LABS: ANTINUCLEAR ANTIBODIES DIRECT Negative (Negative)
== END 2021-12-16 23:59 | disposition home or self-care (01) ==
LOC: MFPLAB 10:22
PROVIDERS: PCP Family Medicine; Referring Provider Family Medicine; Visit Provider Family Medicine
DX: E11.9 Type 2 diabetes mellitus without complications (principal)
CPT/HCPCS: 80048; 80061; 82043; 82570; 85652; 86038; 86141; 86431

== ENCOUNTER → 2022-05-06 | Outpatient (CLI) | payer BC, SELFPAY ==
[2022-05-06 12:45] LABS: Anion Gap 9 (5-15); BUN 11 mg/dL (7-18); Calcium,Total 8.8 mg/dL (8.5-10.1); Chloride 102 mmol/L (98-107); Creatinine, Serum 0.52 mg/dL (0.55-1.02); EST Glomerular Filtration Rate 145 mL/min (>60); Est Glom Filt Rate - Afr Amer 176 mL/min (>60); Glucose 265 mg/dL (74-106); Potassium 4.1 mmol/L (3.5-5.1); Sodium Level 134 mmol/L (136-145)
== END | disposition home or self-care (01) ==
PROVIDERS: PCP Family Medicine; Referring Provider Family Medicine; Visit Provider Family Medicine
DX: E11.65 Type 2 diabetes mellitus with hyperglycemia (principal); R30.0 Dysuria
CPT/HCPCS: 36415; 80048; 87086

== ENCOUNTER → 2023-06-13 | Outpatient (CLI) | payer BC, SELFPAY ==
--- NOTE | 2023-06-13 08:06 | CT_ITS ---
STUDY: CTA OF THE ABDOMINAL AORTA AND BILATERAL LOWER EXTREMITIES REASON FOR EXAM: Female, 33 years old. STRICTURE OF ARTERY, VASCULAR DISEASE. Decreased blood flow to the left lower extremity. Prior amputation of the left great toe. Patient is diabetic. RADIATION DOSAGE (If Supplied By Facility): CTDIvol = ( 7.11 ) mGy, DLP = ( 1395.31 ) mGycm TECHNIQUE: Axial CT angiography multi-detector data acquisition was obtained from the dome of the liver to the level of the ankles following intravenous administration of IV 100mL [id number]. Axial images and MIP images were reconstructed from the axial data set. Post-processing of the angiographic images was performed, with multiplanar reformation and 3D reconstruction. Individualized dose optimization techniques were used for this CT. TECHNICAL QUALITY: Good COMPARISON: None. Descriptors of Narrowing: None (0%) Mild (< 50%) Moderate (50-70%) Severe (70-90%) Subtotal/Total Occlusion (90-100%) Non-Evaluable (technically non-diagnostic FINDINGS: Diffuse fatty infiltration of the liver. The patient is status post cholecystectomy. Abdominal aorta: Scattered nonocclusive atherosclerotic plaques. Celiac and superior mesenteric arteries: No demonstrated narrowing. Inferior mesenteric artery: No demonstrated narrowing. Right renal artery(arteries): No demonstrated narrowing. Left renal artery(arteries): No demonstrated narrowing. Right common iliac artery: Atherosclerotic calcific plaques. This causes approximately 50% narrowing. Right external iliac artery: No demonstrated narrowing. Right internal iliac artery: No demonstrated narrowing. Left common iliac artery: Mild nonstenotic calcific plaques. Left external iliac artery: No demonstrated narrowing. Left internal iliac artery: No demonstrated narrowing. RIGHT LOWER EXTREMITY Right common femoral artery: No demonstrated narrowing. Right profundus femoris: No demonstrated narrowing. Right superficial femoral: No demonstrated narrowing. Right popliteal artery: No demonstrated narrowing. Right tibioperoneal trunk: No demonstrated narrowing. Right anterior tibial artery: No demonstrated narrowing. Right posterior tibial artery: No demonstrated narrowing. Right peroneal artery: No demonstrated narrowing. LEFT LOWER EXTREMITY Left common femoral artery: No demonstrated narrowing. Left profundus femoris: No demonstrated narrowing. Left superficial femoral: No demonstrated narrowing. Left popliteal artery: No demonstrated narrowing. Left tibioperoneal trunk: No demonstrated narrowing. Left anterior tibial artery: No demonstrated narrowing. Left posterior tibial artery: Scattered nonstenotic plaques. Left peroneal artery: Short segment highly stenotic lesions seen in the proximal portion of the peroneal artery. CT/CTA Abd w/Runoff W/WO Contrast IMPRESSION: Short segment highly stenotic lesion is seen in the proximal portion of the left peroneal artery. Mild stenosis of the right common iliac artery. Electronically Signed: Ashish Garcia MD at 11:17 EDT ,
[2023-06-13 08:49] LABS: CREATININE FINGERSTICK < 0.9 mg/dL (0.55-1.02); EGFR FINGERSTICK > 60.0000 mL/min (>60)
== END | disposition home or self-care (01) ==
LOC: CT 08:05
PROVIDERS: PCP Family Medicine; Referring Provider Surgery Vascular Surgery; Visit Provider Surgery Vascular Surgery
DX: I73.9 Peripheral vascular disease, unspecified (principal); I77.1 Stricture of artery
CPT/HCPCS: 75635; Q9967

== ENCOUNTER → 2023-08-03 | Outpatient (CLI) | payer BC, SELFPAY ==
[2023-08-03 18:28] LABS: Anion Gap 10 (5-15); BUN 9 mg/dL (7-18); BUN/Creat Ratio 16.5 RATIO (10-20); Calcium,Total 9.1 mg/dL (8.5-10.1); Chloride 100 mmol/L (98-107); Cholesterol 229 mg/dL (200); Creatinine, Serum 0.55 mg/dL (0.55-1.02); EST Glomerular Filtration Rate 137 mL/min (>60); Est Glom Filt Rate - Afr Amer 166 mL/min (>60); Glucose 280 mg/dL (74-106); High Density Lipoprotein 45 mg/dL; Potassium 4.4 mmol/L (3.5-5.1); Sodium Level 132 mmol/L (136-145); Triglycerides 132 mg/dL; Very Low Density Lipoprotein 26 mg/dL (5-40)
[2023-08-03 18:32] LABS: Hemoglobin A1c 10.2 % (3.8-5.6)
[2023-08-03 18:40] LABS: Microalbumin,Random Urine 63.3 mg/L (NO RANGE EST.)
== END | disposition home or self-care (01) ==
LOC: MFPLAB 14:32
PROVIDERS: PCP Family Medicine; Visit Provider Family Medicine
DX: E11.42 Type 2 diabetes mellitus with diabetic polyneuropathy (principal)
CPT/HCPCS: 36415; 80048; 80061; 82043; 83036

== ENCOUNTER → 2023-12-13 | Outpatient (CLI) | payer BC, SELFPAY ==
--- NOTE | 2023-12-13 14:40 | RAD_ITS ---
STUDY: X-RAY - ACUTE ABDOMINAL SERIES REASON FOR EXAM: Female, 33 years old. Abd pain . Constipation. TECHNIQUE: Single view of the chest. Supine, and erect view(s) of the abdomen were obtained. COMPARISON: None. FINDINGS: The lungs are clear and expanded. Normal size heart. Normal mediastinum and joanna. Normal visualized pulmonary arteries. Normal visualized aortic arch and descending thoracic aorta. There is a moderate amount of colonic fecal material. Prior cholecystectomy. Normal visualized osseous structures. RAD/Acute Abdomen Inc Chest IMPRESSION: Moderate amount of fecal material is seen in the colon. Electronically Signed: Ashish Garcia MD at 10:10 EDT ,
== END | disposition home or self-care (01) ==
PROVIDERS: PCP Family Medicine; Referring Provider Nurse Practitioner Family; Visit Provider Nurse Practitioner Family
DX: R10.9 Unspecified abdominal pain (principal)
CPT/HCPCS: 74022

== ENCOUNTER → 2023-12-20 | Outpatient (CLI) | payer BC, SELFPAY ==
[2023-12-20 18:02] LABS: Absolute Lymphocyte Count 2.78 X10^3/uL (0.83-4.51); Absolute Neutrophil Count 7.5 X10^3/uL (2.0-7.7); Basophil# 0.05 X10^3/uL; Basophil% 0.4 % (0-1); Eosinophils% 1.8 % (0-5); Hematocrit 45.5 % (37-47); Hemoglobin 14.6 g/dL (12.0-15.0); Lymphocyte # 2.78 X10^3/ul (0.83-4.51); Lymphocyte % 24.5 % (19-41); Mean Corp Hgb Conc 32.1 g/dL (32-36); Mean Corpuscular Hgb 27.1 pg (27.0-32.0); Mean Corpuscular Volume 84.6 fL (81-99); Mean Platelet Vol. 10.8 fl (6.2-12.0); Monocyte# 0.74 X10^3/uL; Monocyte% 6.5 % (0-10); NRBC Flagged by Analyzer 0 % (0-5); Neutrophil # 7.52 X10^3/uL (2.7-7.7); Neutrophil % 66.4 % (47-70); Platelet Count 353 K/mm3 (150-450); RBC Distribution Width CV 13.7 % (11.6-14.6); RBC Distribution Width SD 42.4 fl (35.1-43.9); Red Blood Count 5.38 M/mm3 (4.2-5.4); White Blood Count 11.3 K/mm3 (4.4-11.0)
[2023-12-20 18:56] LABS: Hemoglobin A1c 8.5 % (3.8-5.6)
[2023-12-20 19:05] LABS: ALB/GLOB Ratio 0.8 RATIO (0.9-2.4); AST(SGOT) 14 U/L (15-37); Alanine Aminotransfer ALT/SGPT 25 U/L (13-56); Albumin, Serum 3.1 g/dL (3.2-5.0); Alkaline Phosphatase 110 U/L (45-117); Anion Gap 6 (5-15); BUN 5 mg/dL (7-18); BUN/Creat Ratio 10.8 RATIO (10-20); Calcium,Total 9.1 mg/dL (8.5-10.1); Chloride 103 mmol/L (98-107); Cholesterol 261 mg/dL (200); Creatinine, Serum 0.46 mg/dL (0.55-1.02); EST Glomerular Filtration Rate 166 mL/min (>60); Est Glom Filt Rate - Afr Amer 201 mL/min (>60); Globulin 3.9 g/dL (2.2-4.2); Glucose 238 mg/dL (74-106); High Density Lipoprotein 49 mg/dL; Potassium 4.3 mmol/L (3.5-5.1); Sodium Level 134 mmol/L (136-145); Triglycerides 193 mg/dL; Very Low Density Lipoprotein 39 mg/dL (5-40)
== END | disposition home or self-care (01) ==
LOC: MFPLAB 15:06
PROVIDERS: PCP Family Medicine; Visit Provider Family Medicine
DX: D72.829 Elevated white blood cell count, unspecified (principal); E11.9 Type 2 diabetes mellitus without complications
CPT/HCPCS: 36415; 80053; 80061; 83036; 85025

== ENCOUNTER → 2024-03-25 | Outpatient (CLI) | payer BC, SELFPAY ==
[2024-03-25 12:45] LABS: Anion Gap 9 (5-15); BUN 11 mg/dL (7-18); BUN/Creat Ratio 22.5 RATIO (10-20); Calcium,Total 9.3 mg/dL (8.5-10.1); Chloride 102 mmol/L (98-107); Cholesterol 175 mg/dL (200); Creatinine, Serum 0.49 mg/dL (0.55-1.02); EST Glomerular Filtration Rate 155 mL/min (>60); Est Glom Filt Rate - Afr Amer 188 mL/min (>60); Glucose 264 mg/dL (74-106); High Density Lipoprotein 53 mg/dL; Potassium 3.9 mmol/L (3.5-5.1); Sodium Level 137 mmol/L (136-145); Triglycerides 276 mg/dL; Very Low Density Lipoprotein 55 mg/dL (5-40)
== END | disposition home or self-care (01) ==
LOC: MFPLAB 10:40
PROVIDERS: PCP Family Medicine; Visit Provider Family Medicine
DX: E11.42 Type 2 diabetes mellitus with diabetic polyneuropathy (principal)
CPT/HCPCS: 36415; 80048; 80061; 83036

== ENCOUNTER → 2024-07-15 | Outpatient (CLI) | payer BC, SELFPAY ==
[2024-07-15 15:58] LABS: Anion Gap 6 (5-15); BUN 5 mg/dL (7-18); BUN/Creat Ratio 7.8 RATIO (10-20); Calcium,Total 9.1 mg/dL (8.5-10.1); Chloride 103 mmol/L (98-107); Creatinine, Serum 0.64 mg/dL (0.55-1.02); EST Glomerular Filtration Rate 114 mL/min (>60); Est Glom Filt Rate - Afr Amer 138 mL/min (>60); Glucose 387 mg/dL (74-106); Potassium 4.2 mmol/L (3.5-5.1); Sodium Level 132 mmol/L (136-145)
== END | disposition home or self-care (01) ==
LOC: MFPLAB 11:33
PROVIDERS: PCP Family Medicine; Referring Provider Family Medicine; Visit Provider Family Medicine
DX: E87.6 Hypokalemia (principal); E83.42 Hypomagnesemia
CPT/HCPCS: 36415; 80048; 83735

== ENCOUNTER → 2024-08-26 | Outpatient (CLI) | payer BC, SELFPAY ==
[2024-08-26 12:44] LABS: Anion Gap 11 (5-15); BUN 7 mg/dL (7-18); BUN/Creat Ratio 11.6 RATIO (10-20); Calcium,Total 9.6 mg/dL (8.5-10.1); Chloride 102 mmol/L (98-107); Cholesterol 265 mg/dL (200); EST Glomerular Filtration Rate 122 mL/min (>60); Est Glom Filt Rate - Afr Amer 148 mL/min (>60); Glucose 325 mg/dL (74-106); High Density Lipoprotein 44 mg/dL; Potassium 4.1 mmol/L (3.5-5.1); Sodium Level 135 mmol/L (136-145); Triglycerides 150 mg/dL; Very Low Density Lipoprotein 30 mg/dL (5-40)
[2024-08-26 13:13] LABS: Microalbumin,Random Urine 28.7 mg/L (NO RANGE EST.)
[2024-08-26 13:34] LABS: Hemoglobin A1c 10.1 % (3.8-5.6)
== END | disposition home or self-care (01) ==
LOC: MFPLAB 10:39
PROVIDERS: PCP Family Medicine; Referring Provider Family Medicine; Visit Provider Family Medicine
DX: E11.42 Type 2 diabetes mellitus with diabetic polyneuropathy (principal)
CPT/HCPCS: 36415; 80048; 80061; 82043; 83036